=== PATIENT | male | born 1945 | race Two or more races ===

== ENCOUNTER → 2020-08-15 | Emergency (ER) | payer OTHER ==
[~2020-08-15] VITALS: Ht 175.3 cm; Wt 72.6 kg
[~2020-08-15] MED LIST: FORTAMET500 MG; LANTUS SOL100 UNIT/1
== END | disposition home or self-care (01) ==
LOC: ER 18:49
DX: E11.51 Type 2 diabetes mellitus with diabetic peripheral angiopathy without gangrene (principal); R23.0 Cyanosis